=== PATIENT | female | born 1995 | race Caucasian/White ===

== ENCOUNTER 2025-04-26 13:02 | Outpatient (AMB) | payer MEDICAID, SELFPAY ==
[2025-04-26 13:30] VITALS: BP 123/84; PULSE 104; RESP 20; TEMP 36.4; O2SAT 98; BMI 46.6
--- NOTE | 2025-04-26 13:30 | OBCLNT_ITS ---
Vital Signs 04/26/25 13:30 Height 1.6 m Height Method Stated Weight 119.408 kg Weight Measurement Method Standing Scale BMI 46.6 BP 123/84 Blood Pressure Source Automatic Cuff Blood Pressure Location Left Upper Arm Position Sitting Respiration 20 Pulse 104 H Pulse Source Monitor Temp 97.5 F Temp Source Oral Pulse Oximetry (%) 98 Oxygen Delivery Method Room Air Allergies/Home Meds Allergies & Medications Allergies No Known Allergies Allergy (Verified 04/26/25 13:31) Medication Reconciliation ferrous sulfate 325 mg (65 mg iron) tablet 325 mg PO BID 06/08/19 [History Confirmed 04/26/25] vits no.133-ferrous fumarate 28 mg-folic acid 800 mcg tablet () 200 tab QDAY 06/08/19 [History Confirmed 04/26/25] Intake Visit Data Collection New Patient or Established: New Patient not seen in past 3 years at [facility] (considered New) Reason for Visit:: TRANSFER INITIAL CARE Seen by Clinical Staff ONLY (RN/MA): No Industrial Chemicals Supervisor Required: No Do You Feel Safe at Home: Yes Authorities Contacted: N/A PCP or OBGYN visit in last 3 months: Yes Hx Now: Yes Are you currently on any form of Control: No Last menstrual period: 11/29/24 Pain Present Currently: No Pain Scale Used: Us-Denny/Numerical Pain scale:: 0 Smoking Status Smoking Status: Never smoker Immunizations Flu Vaccine in the Last 12 Months: Yes Flu Vaccine Exclusion Criteria: Already Received Questionnaires Covid-19 Vaccine Questionnaire Has patient been vacinated for Covid-19 Have you been vacinated for Covid-19: Yes PHQ-9 PHQ-2 Over the last 2 weeks, how often have you been bothered by any of the following problems? 1. Little interest or pleasure in doing things: not at all 2. Feeling down, depressed, or hopeless: not at all Total score: 0 PHQ-9 3. Trouble falling or staying asleep, or sleeping too much: Not at all 4. Feeling tired or having little energy: Not at all 5. Poor appetite or overeating: Not at all 6. Feeling bad about yourself - or that you are a failure or have let yourself or your family down: Not at all 7. Trouble concentrating on things, such as reading the newspaper or watching television: Not at all 8. Moving or speaking so slowly that other people could have noticed? - Or the opposite - being so fidgety or restless that you have been moving around a lot more than usual: not at all 9. Thoughts that you would be better off or of hurting yourself in some way: Not at all Total score: 0 Source: Developed by Drs. Tino Jose, Leigh Ann Pisano, Cesar Olguin and colleagues, with an educational caryn from [employer]. Depression screen completed yes Social History Living Situation History Marital Status: Lives With: Family Housing: House Tobacco History Smoking Status: Never smoker Second Hand Smoke Exposure: No Alcohol History Alcohol Intake: Never Domestic Abuse History Do You Feel Safe at Home: Yes History of Present Illness HPI Narrative 29-year-old 2 para 1 for OBI. Patient's last. Was November 29, 2024. Estimated due date based on LMP September 05, 2025. Patient is a previous x 1 for failed induction. 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 Patient had no residual problems from that no history of frequent UTIs or urinary tract problems. Denies any history of chronic illness. Denies social habits. Patient denies leaking bleeding or contractions. She reports good movement. 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 Denies labor contractions. Denies any further bleeding. Her last period November 29, 2024. Estimated due date September 05, 2025. She has no OB complaints. Previous x 1 for failed induction Schedule with maternal- medicine for anatomy scan. NIPT carrier screens with OB panel and A1c. I also did CMP. Reordered prenatals. Discussed labor precautions. Schedule with OB Menstrual History Menstrual reliability: definite Flow: normal Menstrual regularity: regular Monthly: Yes Age at menarche: 13 On control pills at conception: No Associated symptoms (LMP): Reports nausea, fatigue and breast tenderness OB History : 2 Para: 1 # of Living Children: 1 Delivery History 1st : Child's name: MARGOT date: 06/08/19 sex: female Gestational age at delivery (weeks): 38 Delivery type: Delivery complications: NONE History of depression before or after : No Infection History & Risk Evaluation History of STDs: none Genetic Screening & History Genetic Screening/Teratology Counseling - Includes patient, baby's father, or anyone in either family with: 1. Patient's age 35 years or older as of estimated date of delivery: No 2. Thalassemia ([place], Citizen Of [place], Mediterranean, or Background); MCV less than 80: No 3. Neural Tube Defect (Meningomyelocele, Spina Bifida, or Anencephaly): No 4. Congenital Heart Defect: No 5. Down Syndrome: No 6. Yuri-Sachs (Ashkenazi Orthodoxy, [place], [place]): No 7. Chanda Disease (Ashkenazi Orthodoxy): No 8. Familial Dysautonomia (Ashkenazi Orthodoxy): No 9. Sickle Cell Disease or Trait (): No 10. Hemophilia or other blood disorders: No 11. Muscular Dystrophy: No 12. Cystic Fibrosis: No 13. Chula's Chorea: No 14. Mental Retardation/Autism: No 15. Other inherited genetic or chromosomal disorder: No 16. Maternal Metabolic Disorder (EG,TYPE 1 Diabetes, PKU): No 17. Patient or baby's father had a child with defects not listed above: No 18. Recurrent loss or a stillbirth: No 19. Medications (including supplements, vitamins, herbs or otc drugs)/illicit/recreational drugs/alcohol since last menstrual period: No 20. Any other: No Infection History 1. Live with someone with TB or exposed to TB: No 2. Rash or viral illness since last menstrual period: No 3. Hepatitis B,C: No Other (see comments) Source: [employer] Review of Systems Review of Systems Systems Reviewed: All systems reviewed, normal except as documented Constitutional Constitutional: Reports fatigue Gastrointestinal Gastrointestinal: Reports nausea Endocrine Endocrine: Reports fatigue Exam General Limitations: no limitations General Appearance: alert, in no apparent distress, comfortable, cooperative, healthy appearing, well developed and well groomed ENT ENT exam: Present normal exam, normal oropharynx and mucous membranes moist Neck Neck exam: Present normal inspection, full ROM and trachea midline Chest Chest inspection: Present normal inspection and symmetric chest wall rise Resp Respiratory exam: Present normal lung sounds bilaterally Card Cardiovascular exam: Present regular rate, normal rhythm and normal heart sounds Abdominal Abdominal exam: Present soft and normal bowel sounds Psych Psychiatric exam: Present normal affect and normal mood Office Procedures OBC Clinic LOC & Office Proc's Nursing/Assessment Patient Status: Established Patient OB Clinic Nursing Assessment: Medication Reconciliation, Update PMH in EMR and Vital Signs OB Clinic Coordination of Care: Complex Care and Chronic Disease 1-5, Consent,records obtained, informed consent, Education Simp Pt/Fam, 1 Ins Authorization, Lab and Imaging orders, Results/Orders obtained and Staff clarify orders Special Needs: Heart tones Established Patient Charge Established Patient Point Assignment: 150 Established Patient Point Charge: EP Level 4 (120-155) Assessment & Plan Diagnosis / Problem List (1) Encounter for supervision of high risk in second trimester, antepartum: Status: Acute (2) Encounter for maternal care for low transverse scar from previous delivery: Status: Acute Plan OB panel with NIPT,carrier screen. A1c and CMP today, schedule with MFM for OB sono < discuss PTL precaution. schedule with OB for management Additional Plan Follow Up: 4 Weeks (obc)
== END 2025-04-26 13:50 | disposition home or self-care (01) ==
LOC: HODSOBC 13:02
PROVIDERS: Supervising Provider Advanced Practice Midwife; Visit Provider Advanced Practice Midwife
DX: O09.292 Supervision of pregnancy with other poor reproductive or obstetric history, second trimester (principal); O34.211 Maternal care for low transverse scar from previous cesarean delivery; O09.892 Supervision of other high risk pregnancies, second trimester; O10.912 Unspecified pre-existing hypertension complicating pregnancy, second trimester; Z3A.21 21 weeks gestation of pregnancy; Z87.59 Personal history of other complications of pregnancy, childbirth and the puerperium
CPT/HCPCS: 99214; G0463

== ENCOUNTER 2025-05-16 10:06 | Outpatient (AMB) | payer MEDICAID, SELFPAY ==
[2025-05-16 10:24] VITALS: BP 130/83; PULSE 94; RESP 18; TEMP 36.2; O2SAT 98; BMI 46.4
--- NOTE | 2025-05-16 10:24 | OBCLNT_ITS ---
Vital Signs 05/16/25 10:24 Height 1.6 m Height Method Stated Weight 118.841 kg Weight Measurement Method Standing Scale BMI 46.4 BP 130/83 Blood Pressure Source Automatic Cuff Blood Pressure Location Left Upper Arm Position Sitting Respiration 18 Pulse 94 Pulse Source Monitor Temp 97.2 F Temp Source Oral Pulse Oximetry (%) 98 Allergies/Home Meds Allergies & Medications Allergies No Known Allergies Allergy (Verified 05/16/25 10:28) Medication Reconciliation ferrous sulfate 325 mg (65 mg iron) tablet 325 mg PO BID 06/08/19 [History Confirmed 05/16/25] vits no.133-ferrous fumarate 28 mg-folic acid 800 mcg tablet () 200 tab QDAY 06/08/19 [History Confirmed 05/16/25] vitamin-ferrous fumarate 28 mg iron-folic acid 800 mcg tablet ( Vitamins with Minerals) 1 tab PO QDAY #60 tabs 04/26/25 [Rx Confirmed 05/16/25] Immunizations Immunizations Flu Vaccine in the Last 12 Months: No Flu Vaccine Exclusion Criteria: No Exclusion Criteria Care OB Visit Log OB Flowsheet Initial Weight: Not Recorded Date -?-?-?-?-?-?-?-?-?-?-?-?- EGA Weight BP Alb Glu CTX Pres Fundal ht FHR Mov Dilation Station Effacement Hx Notes Visit Note 04/26/25 -?-?-?-?-?-?-?-?-?-?-?-?- 21w 1d 119.408 kg 123/84 absent unknown 20 145 active Reports good movement. Denies labor contractions. Denies any further bleeding. Her last period November 29, 2024. Estimated due date September 05, 2025. She has no OB complaints. Previous x 1 for failed induction Schedule with maternal- medicine for anatomy scan. NIPT carrier screens with OB panel and A1c. I also did CMP. Reordered prenatals. Discussed labor precautions. Schedule with OB 05/16/25 -?-?-?-?-?-?-?-?-?-?-?-?- 24w 0d 118.841 kg 130/83 absent unknown 24 147 active Good movement. Denies leaking bleeding contractions Follow-up on maternal- medicine appointment. Still pending. OB panel with third trimester labs. Discussed labor precautions. Patient referred to OB for previous NAY Calculator Estimated Delivery Date Method Current WG Current Estimate 09/05/25 LMP (Certain) 24w 0d Notes Visit Date: 05/16/25 Last Updated by: Paige Rangel CNM NIPT-/male, carrier screen- Visit Date: 04/26/25 Last Updated by: Paige Rangel CNM 29yo IUP 21w, lmp: 11/29/24. EDC: 09/05/25 Office Procedures OBC Clinic LOC & Office Proc's Nursing/Assessment Patient Status: Established Patient OB Clinic Nursing Assessment: Medication Reconciliation, Update PMH in EMR and Vital Signs OB Clinic Coordination of Care: Complex Care and Chronic Disease 1-5, Consent,records obtained, informed consent, Education Simp Pt/Fam, Lab and Imagi ng orders, Results/Orders obtained and Staff clarify orders Special Needs: Heart tones Established Patient Charge Established Patient Point Assignment: 135 Established Patient Point Charge: EP Level 4 (120-155) Assessment & Plan Diagnosis / Problem List (1) Encounter for supervision of high risk in second trimester, antepartum: Status: Acute Plan Third trimester labs with OB panel. Discussed labor precautions. Maternal- medicine ultrasound is pending. Discussed diet and weight. patient referred to OB for repeat management Additional Plan Follow Up: 4 Weeks (obc)
== END 2025-05-16 11:23 | disposition home or self-care (01) ==
LOC: HODSOBC 10:06
PROVIDERS: Supervising Provider Advanced Practice Midwife; Visit Provider Advanced Practice Midwife
DX: O09.292 Supervision of pregnancy with other poor reproductive or obstetric history, second trimester (principal); O34.219 Maternal care for unspecified type scar from previous cesarean delivery; Z3A.24 24 weeks gestation of pregnancy
CPT/HCPCS: 99214; G0463